=== PATIENT | female | born 1975 | race Caucasian/White ===

== ENCOUNTER 2020-11-09 00:06 | Emergency (ER) | payer MEDICAID ==
[~2020-11-09] VITALS: Ht 160 cm; Wt 73.0 kg
[2020-11-09 00:12] VITALS: BP 122/87
[2020-11-09] MEDS ORDERED: SODIUM CHLORIDE 0.9% 1,000 ML IV ONE (00:15)
[2020-11-09] MEDS ORDERED: MORPHINE SULFATE 4 MG/ML CPJ (NOT FOR IM USE) IV ONE (00:30)
[2020-11-09] MEDS ORDERED: ONDANSETRON HCL 4MG/2ML INJ IV ONE (00:30)
== END 2020-11-09 01:00 | disposition short-term general hospital (02) ==
LOC: ER 00:42
DX: S01.81XA Laceration without foreign body of other part of head, initial encounter (principal); S21.112A Laceration without foreign body of left front wall of thorax without penetration into thoracic cavity, initial encounter; S31.119A Laceration without foreign body of abdominal wall, unspecified quadrant without penetration into peritoneal cavity, initial encounter; S11.81XA Laceration without foreign body of other specified part of neck, initial encounter; S41.112A Laceration without foreign body of left upper arm, initial encounter; R06.02 Shortness of breath; R06.82 Tachypnea, not elsewhere classified; Y07.01 Husband, perpetrator of maltreatment and neglect; X99.9XXA Assault by unspecified sharp object, initial encounter; Y93.89 Activity, other specified; Y92.89 Other specified places as the place of occurrence of the external cause
CPT/HCPCS: 71045; 96361; 96374; 96375; 99285; J2270; J2405; J7030